=== PATIENT | female | born 1990 | race Asian ===

== ENCOUNTER 2021-11-06 12:59 | Day surgery (SDC) | payer MEDICAID ==
[~2021-11-06] VITALS: Ht 170.2 cm; Wt 62.1 kg
--- NOTE | 2021-11-06 13:48 | NUR ---
CALLED X 1. NO SHOW.
[2021-11-06] MEDS ORDERED: LACTATED RINGERS 1,000 ML IV ONE (13:55)
[2021-11-06 14:04] VITALS: BP 116/73
--- NOTE | 2021-11-06 14:10 | NUR ---
WALKED IN ACCOMPANIED BY SPOUSE FOR D&C PROCEDURE SCHEDULED WITH DR HESTER. HEART STOPPED AT 10WK GESTATION. CURRENTLY 12 WKS INTO . PT C/O SPOTTING AND PELVIC PAIN ONSET 1 DAY. AAOX4, AMBULATORY, VITALS STABLE. . LMS 08/04/21. IV ESTABLISHED ON L AC 20G. BLOOD DRAWN.
[2021-11-06 14:36] LABS: BASOPHILS % (AUTO) 0.5 % (0.0-2.0); EOSINOPHILS # (AUTO) 0.1 K/uL (0-0.4); EOSINOPHILS % (AUTO) 0.8 % (0.0-4.0); HEMATOCRIT 39.5 % (36-48); HEMOGLOBIN 13.1 g/dL (12.0-16.0); LYMPHOCYTES # (AUTO) 2.8 K/uL (2.5-16.5); LYMPHOCYTES % (AUTO) 39.4 % (20.5-51.1); MEAN CORPUSCULAR HEMOGLOBIN 29 pg (27-31); MEAN CORPUSCULAR HGB CONC 33 g/dL (33-37); MEAN CORPUSCULAR VOLUME 86.8 fL (80-94); MONOCYTES # (AUTO) 0.3 K/uL (0.8-1.0); MONOCYTES % (AUTO) 4.5 % (1.7-9.3); NEUTROPHILS % (AUTO) 54.8 % (42.2-75.2); PLATELET COUNT (AUTO) 300 K/uL (140-450); RED BLOOD CELL COUNT(AUTO) 4.55 MIL/uL (4.20-5.40); RED CELL DISTRIBUTION WIDTH 13.9 % (11.6-13.7); WHITE BLOOD COUNT (AUTO) 7.2 K/uL (4.8-10.8)
[2021-11-06 14:55] LABS: ANION GAP 11.8 (8-16); CARBON DIOXIDE 26.7 mmol/L (21-32); CREATININE 0.5 mg/dL (0.6-1.3); POTASSIUM 3.5 mmol/L (3.5-5.1)
[2021-11-06 15:06] LABS: PROTHROMBIN TIME 9.8 secs (10.8-13.4)
--- NOTE | 2021-11-06 15:46 | NUR ---
Patient will be admitted to care of DR. HESTER. Admited to OR. Will go to OR Belongings list completed. Report to BABATUNDE AGUILAR AND MANDI LUNA.
--- NOTE | 2021-11-06 15:47 | NUR ---
PT TAKEN TO OR
[2021-11-06] MEDS ORDERED: PROPOFOL 200 MG/20 ML VIAL IV ONE (16:02)
[2021-11-06] MEDS ORDERED: fentaNYL citrate 0.05 MG/ML VIAL ONE (16:02)
[2021-11-06] MEDS ORDERED: MIDAZOLAM 2 MG/2 ML VIAL ONE (16:02)
[2021-11-06] MEDS ORDERED: DEXAMETHASONE 4 MG/ML VIAL ONE (16:08)
[2021-11-06] MEDS ORDERED: ONDANSETRON 4 MG/2 ML VIAL ONE (16:08)
[2021-11-06] MEDS ORDERED: SEVOFLURANE 250 ML BTL INH ONE (16:30)
[2021-11-06] MEDS ORDERED: ceFAZolin 1,000 MG VIAL ONE (16:43)
[2021-11-06] MEDS ORDERED: MEPERIDINE 25 MG/ML SYR IVP PRN (17:10)
[2021-11-06] MEDS ORDERED: HYDROmorphone 1 MG/ML AMP IVP PRN (17:10)
[2021-11-06] MEDS ORDERED: LACTATED RINGERS 1,000 ML IV SCH (17:10)
[2021-11-06] MEDS ORDERED: ONDANSETRON 4 MG/2 ML VIAL IVP PRN (17:10)
[2021-11-06 17:55] VITALS: BP 110/68
--- NOTE | 2021-11-06 18:00 | NUR ---
RECEIVED PT FROM OR VIA [facility]. S/P D and C. PT AWAKE, ALERT, ABLE TO MAKE NEEDS KNOWN. BREATHING SYMMETRICAL ON ROOM AIR. SKIN INTACT, NO C/O PAIN AT THIS TIME. LAC 20G WITH LR AT 120CC/HR. MRSA SWAB DONE. CALL LIGHT WITHIN REACH. ALL SAFETY MEASURES IN PLACE. AT BEDSIDE.
--- NOTE | 2021-11-06 18:58 | NUR ---
PT'S DIET STILL NPO, LEFT MESSAGE TO DR HESTER
--- NOTE | 2021-11-06 19:15 | NUR ---
ENDORSED PT TO MOWER OPERATOR NURSE FOR CONTINUITY OF CARE.
--- NOTE | 2021-11-06 19:30 | NUR ---
RECEIVED REPORT FROM AM SHIFT RN SHE STATED THAT PT IS WANTING TO BE DISCHARGED. DR. BLAND HAS BEEN UPDATED AND HER DIET HAS BEEN CHANGED TO REGULAR DIET. DR. BLAND STATED THAT SOON THE PT IS ABLE TO TOLERATE SOME FOOD AND URINATE SHE IS OKAY TO GO HOME, PT DID USE THE BATHROOM ALREADY AND IS NOW EATING A SANDWICH.
[2021-11-06 20:00] VITALS: BP 96/53
[2021-11-06 20:23] VITALS: BP 96/53
--- NOTE | 2021-11-06 20:58 | NUR ---
PT IS TOLERATING FOOD WELL NO NAUSEA OR VOMITING NOTED, PT HAS USED THE BATHROOM TWICE. DR. BLAND IS AWARE AND HE STATED GO AHEAD AND DISCHARGE THE PATIENT, AND ORDER IS PRESENT FOR DISCHARGE. SHE HAS A FOLLOW UP IN A WEEK AND I HAVE PROVIDED DISCHARGE TEACHING TO THE PATIENT WELL PROVIDED AN EDUCATION PACKET TO HER. I D/C'D HER LAC PIV. DR. BLAND IS PROVIDING PT WITH DISCHARGE MEDICATION : IBUPROFEN [id number].
== END 2021-11-06 21:25 | disposition home or self-care (01) ==
LOC: MED 12:59 → MDS 14:18 → MTU 14:29 → MDS 21:25
PROVIDERS: ATTEND Obstetrics & Gynecology
DX: O03.9 Complete or unspecified spontaneous abortion without complication (principal); Z79.01 Long term (current) use of anticoagulants; Z79.899 Other long term (current) drug therapy; Z20.822 Contact with and (suspected) exposure to COVID-19
CPT/HCPCS: 36415; 59812; 80048; 85025; 85610; 85730; 86886; 86900; 86901; 87426; 99285; J0690; J1100; J2250; J2405; J2704; J3010; J7030